=== PATIENT | male | born 1965 | race Caucasian/White ===

== ENCOUNTER 2018-07-18 15:20 | Inpatient (IN) | payer MEDICARE, MEDICAID ==
[~2018-07-18] VITALS: Ht 144.8 cm; Wt 88.9 kg
[2018-07-18] MEDS ORDERED: MORPHINE SULFATE 4 MG/ML CPJ (NOT FOR IM USE) IV STA (15:45)
[2018-07-18] MEDS ORDERED: NITROGLYCERIN OINT 1GM/INCH UDPKT TD ONE (15:45)
[2018-07-18] MEDS ORDERED: ASPIRIN 81MG TABLET PO ONE (15:45)
[2018-07-18] MEDS ORDERED: ONDANSETRON HCL 4MG/2ML INJ IV STA (15:45)
[2018-07-18] MEDS: NITROGLYCERIN 0.4MG TABLET SL SL PRN ×3 (16:36→16:55)
[2018-07-18 16:41] LABS: BASOPHILS % 0.6 % (0.0-2.0); EOSINOPHILS % 0.1 % (0.0-5.0); HEMATOCRIT. 30.6 % (42.0-52.0); LYMPHOCYTES % 9.9 % (20.0-50.0); MEAN CORPUSCULAR HEMOGLOBIN 31.2 pg (28.0-32.0); MEAN CORPUSCULAR VOLUME 95.1 fL (80.0-94.0); MEAN PLATELET VOLUME 8.2 fl (7.4-10.4); MONOCYTES % 5.4 % (2.0-8.0); PLATELET 244 x1000/uL (130-400); RED BLOOD CELL COUNT 3.22 mill/uL (4.7-6.1); RED CELL DISTRIBUTION WIDTH 18.4 % (11.6-14.6)
[2018-07-18] MEDS ORDERED: LORAZEPAM 2MG/ML CPJ IV ONE (16:45)
[2018-07-18 16:46] LABS: CHLORIDE 97 mEq/L (98-107)
[2018-07-18 16:48] LABS: INR 1.2; PARTIAL THROMBOPLASTIN TIME 24.9 sec (23.4-31.0); PROTHROMBIN TIME 11.8 sec (9.1-11.1)
[2018-07-18 16:53] LABS: ETHANOL BLOOD < 10 mg/dL
[2018-07-18 16:54] LABS: PHOSPHORUS 4.7 mg/dL (2.5-4.9)
[2018-07-18] MEDS ORDERED: CLONIDINE 0.1MG TABLET PO PRN (18:30)
[2018-07-18] MEDS ORDERED: DEXTROSE 50% WATER 50ML SYRINGE IV PRN (18:30)
[2018-07-18] MEDS ORDERED: ONDANSETRON HCL 4MG/2ML INJ IV PRN (18:30)
[2018-07-18] MEDS ORDERED: LACTULOSE 20G/30ML UDC PO PRN (19:34)
[2018-07-18 21:00] VITALS: BP 168/89
[2018-07-18] MEDS: BLOOD SUGAR DIAGNOSTIC STRIP TEST SCH (21:00)
[2018-07-18] MEDS: INSULIN LISPRO 100 UNITS/ML SUBCUT SCH (21:00)
[2018-07-18 22:06] VITALS: BP 168/89
[2018-07-18] MEDS: AMLODIPINE 5MG TABLET PO SCH (22:31)
[2018-07-18] MEDS: NITROGLYCERIN OINT 1GM/INCH UDPKT TD SCH (22:32)
[2018-07-19] VITALS (7 sets, daily range): BP systolic 132–150; BP diastolic 64–83
[2018-07-19] MEDS: NITROGLYCERIN OINT 1GM/INCH UDPKT TD SCH ×3 (05:43→23:13)
[2018-07-19] MEDS: INSULIN LISPRO 100 UNITS/ML SUBCUT SCH ×4 (05:47→20:28)
[2018-07-19] MEDS: BLOOD SUGAR DIAGNOSTIC STRIP TEST SCH ×4 (05:47→20:29)
[2018-07-19 08:37] LABS: CREATINE KINASE MB FRACTION 1.2 ng/mL (0.5-3.6)
[2018-07-19] MEDS: ASPIRIN 81MG TABLET PO SCH (08:41)
[2018-07-19] MEDS: AMLODIPINE 5MG TABLET PO SCH ×2 (08:41→20:24)
[2018-07-19] MEDS: LOSARTAN POTASSIUM 50 MG TABLET PO SCH (09:00)
[2018-07-19] MEDS: ATORVASTATIN CALCIUM 10MG TABLET PO SCH (20:23)
[2018-07-19] MEDS: MORPHINE SULFATE 4 MG/ML CPJ (NOT FOR IM USE) IV PRN (20:23)
[2018-07-19] MEDS: METOPROLOL TARTRATE 25MG TABLET PO SCH (20:24)
[2018-07-20 04:00] VITALS: BP 142/88
[2018-07-20] MEDS: BLOOD SUGAR DIAGNOSTIC STRIP TEST SCH ×4 (06:17→20:45)
[2018-07-20] MEDS: NITROGLYCERIN OINT 1GM/INCH UDPKT TD SCH ×3 (06:18→22:56)
[2018-07-20] MEDS: INSULIN LISPRO 100 UNITS/ML SUBCUT SCH ×4 (06:18→20:45)
[2018-07-20 08:10] VITALS: BP 141/74
[2018-07-20] MEDS: ASPIRIN 81MG TABLET PO SCH (08:57)
[2018-07-20] MEDS: LOSARTAN POTASSIUM 50 MG TABLET PO SCH (08:57)
[2018-07-20] MEDS: METOPROLOL TARTRATE 25MG TABLET PO SCH ×2 (08:57→20:44)
[2018-07-20] MEDS: AMLODIPINE 5MG TABLET PO SCH ×2 (08:58→20:44)
[2018-07-20] MEDS: MORPHINE SULFATE 4 MG/ML CPJ (NOT FOR IM USE) IV PRN ×2 (09:03→21:01)
[2018-07-20 09:35] LABS: BASOPHILS % 1.1 % (0.0-2.0); HEMATOCRIT. 34.9 % (42.0-52.0); HEMOGLOBIN. 11.5 g/dL (14.0-18.0); LYMPHOCYTES % 20.3 % (20.0-50.0); MEAN CORPUSCULAR VOLUME 94.2 fL (80.0-94.0); MEAN PLATELET VOLUME 7.9 fl (7.4-10.4); MONOCYTES % 7.9 % (2.0-8.0); NEUTROPHILS % 63.7 % (40.0-76.0); PLATELET 272 x1000/uL (130-400)
[2018-07-20 09:52] LABS: PHOSPHORUS 5.4 mg/dL (2.5-4.9)
[2018-07-20 12:00] VITALS: BP 137/69
[2018-07-20 16:02] VITALS: BP 151/84
[2018-07-20 20:00] VITALS: BP 146/82
[2018-07-20] MEDS: ATORVASTATIN CALCIUM 10MG TABLET PO SCH (20:44)
[2018-07-21] VITALS: BP 140/80
[2018-07-21 04:00] VITALS: BP 131/78
[2018-07-21] MEDS: NITROGLYCERIN OINT 1GM/INCH UDPKT TD SCH ×2 (06:00→14:47)
[2018-07-21] MEDS: BLOOD SUGAR DIAGNOSTIC STRIP TEST SCH ×3 (06:09→16:33)
[2018-07-21] MEDS: INSULIN LISPRO 100 UNITS/ML SUBCUT SCH ×3 (06:09→17:13)
[2018-07-21 08:18] VITALS: BP 147/84
[2018-07-21 10:02] LABS: BASOPHILS % 1.9 % (0.0-2.0); EOSINOPHILS % 8.4 % (0.0-5.0); HEMATOCRIT. 35.3 % (42.0-52.0); HEMOGLOBIN. 11.7 g/dL (14.0-18.0); LYMPHOCYTES % 19.6 % (20.0-50.0); MEAN CORPUSCULAR HEMOGLOBIN 31.1 pg (28.0-32.0); MEAN CORPUSCULAR VOLUME 93.7 fL (80.0-94.0); MEAN PLATELET VOLUME 8.7 fl (7.4-10.4); MONOCYTES % 6.4 % (2.0-8.0); NEUTROPHILS % 63.7 % (40.0-76.0); PLATELET 327 x1000/uL (130-400); RED BLOOD CELL COUNT 3.77 mill/uL (4.7-6.1); RED CELL DISTRIBUTION WIDTH 17.1 % (11.6-14.6)
[2018-07-21] MEDS: METOPROLOL TARTRATE 25MG TABLET PO SCH (10:09)
[2018-07-21] MEDS: AMLODIPINE 5MG TABLET PO SCH (10:09)
[2018-07-21] MEDS: LOSARTAN POTASSIUM 50 MG TABLET PO SCH (10:09)
[2018-07-21] MEDS: ASPIRIN 81MG TABLET PO SCH (10:09)
[2018-07-21 10:29] LABS: PHOSPHORUS 6.6 mg/dL (2.5-4.9)
[2018-07-21 12:00] VITALS: BP 147/85
[2018-07-21] MEDS ORDERED: SODIUM POLYSTYRENE SULFONATE 15 G/60 ML BOT PO SCH (16:49)
[2018-07-21] MEDS ORDERED: LOSA50TA3 PO (17:16)
[2018-07-21] MEDS ORDERED: ASPI-1160 PO (17:16)
[2018-07-21] MEDS ORDERED: METO25TA6 PO (17:16)
[2018-07-21] MEDS ORDERED: AMLO5TAB88 PO (17:16)
[2018-07-21] MEDS ORDERED: ATOR10TA PO (17:16)
[2018-07-21 17:26] VITALS: BP 134/86
== END 2018-07-21 20:00 | disposition home or self-care (01) | DRG 205 ==
LOC: ER 15:20 → 8WST 17:04 → ENRESERV 19:01
PROVIDERS: ADMIT Internal Medicine; ATTEND Internal Medicine
DX: M94.0 Chondrocostal junction syndrome [Tietze] (principal); N18.6 End stage renal disease; I50.21 Acute systolic (congestive) heart failure; J96.91 Respiratory failure, unspecified with hypoxia; I13.2 Hypertensive heart and chronic kidney disease with heart failure and with stage 5 chronic kidney disease, or end stage renal disease; N25.81 Secondary hyperparathyroidism of renal origin; E87.1 Hypo-osmolality and hyponatremia; I42.9 Cardiomyopathy, unspecified; R07.89 Other chest pain; D63.8 Anemia in other chronic diseases classified elsewhere; E11.22 Type 2 diabetes mellitus with diabetic chronic kidney disease; E11.43 Type 2 diabetes mellitus with diabetic autonomic (poly)neuropathy; E11.65 Type 2 diabetes mellitus with hyperglycemia; R26.2 Difficulty in walking, not elsewhere classified; E87.8 Other disorders of electrolyte and fluid balance, not elsewhere classified; I27.20 Pulmonary hypertension, unspecified; K31.84 Gastroparesis; Z82.49 Family history of ischemic heart disease and other diseases of the circulatory system; Z86.718 Personal history of other venous thrombosis and embolism; Z99.2 Dependence on renal dialysis
CPT/HCPCS: 36415; 71045; 80048; 80061; 82550; 82553; 82962; 83735; 84100; 84155; 84165; 84443; 84484; 93005; 93306; 93970; 96374; 96375; 99291; C1893; G0482; J1815; J2060; J2270; J2405; J7030

== ENCOUNTER 2018-08-02 10:15 | Inpatient (IN) | payer MEDICARE, MEDICAID ==
[~2018-08-02] VITALS: Ht 165.1 cm; Wt 61.7 kg
[~2018-08-02 10:15] MED LIST: AMLO5TAB88 PO; ASPI-1160 PO; ATOR10TA PO; LOSA50TA3 PO; METO25TA6 PO
[2018-08-02] MEDS ORDERED: ONDANSETRON HCL 4MG/2ML INJ IV STA (10:27)
[2018-08-02] MEDS ORDERED: MORPHINE SULFATE 4 MG/ML CPJ (NOT FOR IM USE) IV ONE (10:45)
[2018-08-02 10:49] LABS: HEMATOCRIT. 29.1 % (42.0-52.0); HEMOGLOBIN. 9.7 g/dL (14.0-18.0); MEAN CORPUSCULAR HEMOGLOBIN 31.1 pg (28.0-32.0); MEAN CORPUSCULAR VOLUME 93.6 fL (80.0-94.0); MEAN PLATELET VOLUME 8.6 fl (7.4-10.4); PLATELET 214 x1000/uL (130-400); RED BLOOD CELL COUNT 3.11 mill/uL (4.7-6.1)
[2018-08-02 11:01] LABS: CHLORIDE 95 mEq/L (98-107)
[2018-08-02 11:20] LABS: PLATELET ESTIMATE NORMAL
[2018-08-02] MEDS ORDERED: FUROSEMIDE 100MG/10ML VIAL IV STA (11:25)
[2018-08-02] MEDS ORDERED: DEXTROSE 50% WATER 50ML SYRINGE IV ONE (11:30)
[2018-08-02] MEDS ORDERED: SODIUM BICARBONATE 8.4% 1 MEQ/ML 50ML SYR IV ONE (11:30)
[2018-08-02] MEDS ORDERED: INSULIN REGULAR (HUMULIN R) 300UNITS/3ML IV ONE (11:30)
[2018-08-02] MEDS ORDERED: CALCIUM CHLORIDE 1GM/10ML SYR IV ONE (11:30)
[2018-08-02] MEDS ORDERED: ALBUTEROL (0.083%) 2.5MG/3ML NEB HHN ONE (11:30)
[2018-08-02] MEDS ORDERED: IPRATROPIUM/ALBUTEROL 0.5-3(2.5)MG/3ML NEB INH PRN (13:30)
[2018-08-02] MEDS ORDERED: CLONIDINE 0.1MG TABLET PO PRN (13:30)
[2018-08-02] MEDS ORDERED: DOCUSATE SODIUM 100MG CAPSULE PO PRN (13:30)
[2018-08-02] MEDS ORDERED: ONDANSETRON HCL 4MG/2ML INJ IV PRN (13:30)
[2018-08-02] MEDS ORDERED: ACETAMINOPHEN 325MG TABLET PO PRN (13:30)
[2018-08-02 13:45] VITALS: BP 147/55
[2018-08-02] MEDS ORDERED: DEXTROSE 50% WATER 50ML SYRINGE IV PRN (13:45)
[2018-08-02 14:43] VITALS: BP 147/55
[2018-08-02 16:00] VITALS: BP 127/58
[2018-08-02] MEDS: INSULIN LISPRO 100 UNITS/ML SUBCUT SCH ×2 (16:10→20:53)
[2018-08-02] MEDS: BLOOD SUGAR DIAGNOSTIC STRIP TEST SCH ×2 (16:10→20:52)
[2018-08-02] MEDS: HYDROCODONE/ACETAMINOPHEN 5/325MG TABLET PO PRN (16:29)
[2018-08-02 18:21] LABS: CREATINE KINASE MB FRACTION 1.5 ng/mL (0.5-3.6); PHOSPHORUS 3.8 mg/dL (2.5-4.9)
[2018-08-02] MEDS ORDERED: NITROGLYCERIN 0.4MG TABLET SL SL PRN (18:45)
[2018-08-02] MEDS ORDERED: MORPHINE SULFATE 4 MG/ML CPJ (NOT FOR IM USE) IV PRN (18:45)
[2018-08-02 20:00] VITALS: BP 144/56
[2018-08-03] VITALS: BP 134/55
[2018-08-03 04:00] VITALS: BP 131/56
[2018-08-03] MEDS: BLOOD SUGAR DIAGNOSTIC STRIP TEST SCH ×4 (06:20→21:00)
[2018-08-03] MEDS: PANTOPRAZOLE 40MG DR TABLET PO SCH (06:20)
[2018-08-03 06:23] LABS: EOSINOPHILS % 2.2 % (0.0-5.0); HEMATOCRIT. 24.9 % (42.0-52.0); HEMOGLOBIN. 8.4 g/dL (14.0-18.0); LYMPHOCYTES % 16.8 % (20.0-50.0); MEAN CORPUSCULAR HEMOGLOBIN 31.1 pg (28.0-32.0); MEAN CORPUSCULAR VOLUME 92.6 fL (80.0-94.0); MEAN PLATELET VOLUME 8.9 fl (7.4-10.4); MONOCYTES % 9.8 % (2.0-8.0); NEUTROPHILS % 70.2 % (40.0-76.0); PLATELET 183 x1000/uL (130-400); RED BLOOD CELL COUNT 2.69 mill/uL (4.7-6.1); RED CELL DISTRIBUTION WIDTH 16.8 % (11.6-14.6)
[2018-08-03 06:56] LABS: CREATINE KINASE MB FRACTION 1.2 ng/mL (0.5-3.6)
[2018-08-03] MEDS: INSULIN LISPRO 100 UNITS/ML SUBCUT SCH ×4 (07:42→21:00)
[2018-08-03 08:00] VITALS: BP 129/50
[2018-08-03] MEDS: HYDROCODONE/ACETAMINOPHEN 5/325MG TABLET PO PRN ×2 (09:27→13:40)
[2018-08-03 12:00] VITALS: BP 152/71
[2018-08-03] MEDS: ASPIRIN 81MG EC TABLET PO SCH (13:39)
[2018-08-03 16:00] VITALS: BP 168/58
[2018-08-03 20:00] VITALS: BP 153/56
[2018-08-03] MEDS: METOPROLOL TARTRATE 25MG TABLET PO SCH (21:00)
[2018-08-03] MEDS: ATORVASTATIN CALCIUM 10MG TABLET PO SCH (22:08)
[2018-08-04] VITALS: BP 149/53
[2018-08-04] MEDS: PANTOPRAZOLE 40MG DR TABLET PO SCH (06:03)
[2018-08-04] MEDS: BLOOD SUGAR DIAGNOSTIC STRIP TEST SCH ×4 (07:20→20:17)
[2018-08-04] MEDS: INSULIN LISPRO 100 UNITS/ML SUBCUT SCH ×4 (07:50→20:17)
[2018-08-04 08:00] VITALS: BP 125/68
[2018-08-04] MEDS: METOPROLOL TARTRATE 25MG TABLET PO SCH ×2 (09:00→20:16)
[2018-08-04] MEDS: ASPIRIN 81MG EC TABLET PO SCH (09:00)
[2018-08-04] MEDS ORDERED: REGADENOSON 0.4 MG/5 ML IV NR (10:15)
[2018-08-04 12:00] VITALS: BP 130/53
[2018-08-04 16:00] VITALS: BP 149/61
[2018-08-04 16:12] LABS: BASOPHILS % 1.4 % (0.0-2.0); EOSINOPHILS % 9.8 % (0.0-5.0); HEMATOCRIT. 25.6 % (42.0-52.0); HEMOGLOBIN. 8.5 g/dL (14.0-18.0); LYMPHOCYTES % 15.2 % (20.0-50.0); MEAN CORPUSCULAR HEMOGLOBIN 31.3 pg (28.0-32.0); MEAN CORPUSCULAR VOLUME 93.8 fL (80.0-94.0); MEAN PLATELET VOLUME 8.9 fl (7.4-10.4); MONOCYTES % 6.8 % (2.0-8.0); NEUTROPHILS % 66.8 % (40.0-76.0); PLATELET 205 x1000/uL (130-400); RED BLOOD CELL COUNT 2.73 mill/uL (4.7-6.1); RED CELL DISTRIBUTION WIDTH 15.9 % (11.6-14.6)
[2018-08-04 20:09] VITALS: BP 165/83
[2018-08-04] MEDS: ATORVASTATIN CALCIUM 10MG TABLET PO SCH (20:16)
[2018-08-05] MEDS ORDERED: FAMOTIDINE 20MG TABLET PO SCH (09:00)
== END 2018-08-04 20:50 | disposition home or self-care (01) | DRG 291 ==
LOC: ER 10:15 → 6WST 11:44 → EDBEDREQ 11:46 → ENRESERV 12:03
PROVIDERS: ADMIT Internal Medicine; ATTEND Internal Medicine
PROC: 5A1D70Z Performance of Urinary Filtration, Intermittent, Less than 6 Hours Per Day (ICD-10-PCS; 2018-08-02)
PROC: 5A1D70Z Performance of Urinary Filtration, Intermittent, Less than 6 Hours Per Day (ICD-10-PCS; principal; 2018-08-03)
DX: I13.2 Hypertensive heart and chronic kidney disease with heart failure and with stage 5 chronic kidney disease, or end stage renal disease (principal); N18.6 End stage renal disease; I50.23 Acute on chronic systolic (congestive) heart failure; E87.2 Acidosis; E87.1 Hypo-osmolality and hyponatremia; E87.5 Hyperkalemia; E11.43 Type 2 diabetes mellitus with diabetic autonomic (poly)neuropathy; K31.84 Gastroparesis; I42.9 Cardiomyopathy, unspecified; D63.1 Anemia in chronic kidney disease; E11.40 Type 2 diabetes mellitus with diabetic neuropathy, unspecified; E11.21 Type 2 diabetes mellitus with diabetic nephropathy; I27.20 Pulmonary hypertension, unspecified; E11.22 Type 2 diabetes mellitus with diabetic chronic kidney disease; Z91.15 Patient's noncompliance with renal dialysis; Z91.19 Patient's noncompliance with other medical treatment and regimen; Z79.82 Long term (current) use of aspirin; Z99.2 Dependence on renal dialysis; Z79.899 Other long term (current) drug therapy
CPT/HCPCS: 36415; 71045; 80048; 80061; 82550; 82553; 82962; 83735; 83880; 84100; 84443; 84484; 93005; 93970; 94640; 96374; 96375; 99285; C1893; J1815; J1940; J2270; J2405; J3490; J7030; J7611

== ENCOUNTER 2018-08-15 23:47 | Inpatient (IN) | payer MEDICARE, MEDICAID ==
[~2018-08-15] VITALS: Ht 160 cm; Wt 61.0 kg
[~2018-08-15 23:47] MED LIST changes: -LOSA50TA3 PO
[2018-08-16] MEDS ORDERED: METOCLOPRAMIDE HCL 10MG/2ML VIAL IV STA (00:23)
[2018-08-16] MEDS ORDERED: MORPHINE SULFATE 4 MG/ML CPJ (NOT FOR IM USE) IV ONE (02:15)
[2018-08-16 02:56] LABS: CHLORIDE 101 mEq/L (98-107)
[2018-08-16 03:03] LABS: ETHANOL BLOOD < 10 mg/dL
[2018-08-16 03:16] LABS: BASOPHILS % 0.6 % (0.0-2.0); EOSINOPHILS % 1.4 % (0.0-5.0); HEMATOCRIT. 24.1 % (42.0-52.0); HEMOGLOBIN. 8.1 g/dL (14.0-18.0); LYMPHOCYTES % 9.2 % (20.0-50.0); MEAN CORPUSCULAR HEMOGLOBIN 31.5 pg (28.0-32.0); MEAN CORPUSCULAR VOLUME 93.9 fL (80.0-94.0); MEAN PLATELET VOLUME 8.8 fl (7.4-10.4); NEUTROPHILS % 84.8 % (40.0-76.0); PLATELET 218 x1000/uL (130-400); RED BLOOD CELL COUNT 2.57 mill/uL (4.7-6.1); RED CELL DISTRIBUTION WIDTH 16.3 % (11.6-14.6)
[2018-08-16] MEDS ORDERED: DEXTROSE 50% WATER 50ML SYRINGE IV ONE ×2 (05:00→05:45)
[2018-08-16] MEDS ORDERED: SODIUM POLYSTYRENE SULFONATE 15 G/60 ML BOT PO ONE (05:00)
[2018-08-16] MEDS ORDERED: ASPIRIN 81MG TABLET PO ONE (05:00)
[2018-08-16] MEDS ORDERED: INSULIN REGULAR (HUMULIN R) 300UNITS/3ML IV ONE (05:00)
[2018-08-16 08:55] VITALS: BP 156/84
[2018-08-16 09:00] VITALS: BP 156/84
[2018-08-16] MEDS ORDERED: ONDANSETRON HCL 4MG/2ML INJ IV PRN (09:30)
[2018-08-16] MEDS ORDERED: CLONIDINE 0.1MG TABLET PO PRN (09:30)
[2018-08-16] MEDS: LOSARTAN POTASSIUM 100 MG TABLET PO SCH (09:30)
[2018-08-16] MEDS: MORPHINE SULFATE 4 MG/ML CPJ (NOT FOR IM USE) IV PRN ×2 (11:32→21:37)
[2018-08-16 11:42] VITALS: BP 156/84
[2018-08-16 12:00] VITALS: BP_SYST 162; BP_SYST 164; BP_DIAS 86
[2018-08-16] MEDS ORDERED: METOCLOPRAMIDE HCL 10MG/2ML VIAL IV SCH (12:00)
[2018-08-16] MEDS: HYDRALAZINE HCL 100MG TABLET PO SCH ×2 (14:00→22:17)
[2018-08-16] MEDS: NIFEDIPINE XL 60MG TAB PO SCH (14:15)
[2018-08-16 16:00] VITALS: BP 161/96
[2018-08-16] MEDS: METOCLOPRAMIDE HCL 10MG/2ML VIAL IV SCH (18:00)
[2018-08-16] MEDS: EPOETIN ALFA 10000UNITS/ML VIAL SUBCUT SCH ×2 (21:00→22:17)
[2018-08-16] MEDS ORDERED: EPOETIN ALFA 10000UNITS/ML VIAL SUBCUT SCH (21:00)
[2018-08-16 22:31] LABS: CREATINE KINASE MB FRACTION 1.7 ng/mL (0.5-3.6)
[2018-08-17] VITALS: BP 149/80
[2018-08-17] MEDS: METOCLOPRAMIDE HCL 10MG/2ML VIAL IV SCH ×4 (01:38→18:21)
[2018-08-17 04:00] VITALS: BP 137/66
[2018-08-17] MEDS: HYDRALAZINE HCL 100MG TABLET PO SCH ×2 (06:00→14:00)
[2018-08-17 08:00] VITALS: BP 100/47
[2018-08-17] MEDS: NIFEDIPINE XL 60MG TAB PO SCH (09:02)
[2018-08-17] MEDS: LOSARTAN POTASSIUM 100 MG TABLET PO SCH (09:02)
[2018-08-17] MEDS: MORPHINE SULFATE 4 MG/ML CPJ (NOT FOR IM USE) IV PRN (09:03)
[2018-08-17 10:17] LABS: BASOPHILS % 1.4 % (0.0-2.0); EOSINOPHILS % 6.6 % (0.0-5.0); HEMATOCRIT. 26.6 % (42.0-52.0); HEMOGLOBIN. 9.1 g/dL (14.0-18.0); LYMPHOCYTES % 25.9 % (20.0-50.0); MEAN CORPUSCULAR HEMOGLOBIN 31.4 pg (28.0-32.0); MEAN CORPUSCULAR VOLUME 92.2 fL (80.0-94.0); MEAN PLATELET VOLUME 8.2 fl (7.4-10.4); MONOCYTES % 7.2 % (2.0-8.0); NEUTROPHILS % 58.9 % (40.0-76.0); PLATELET 234 x1000/uL (130-400); RED BLOOD CELL COUNT 2.89 mill/uL (4.7-6.1)
[2018-08-17 12:00] VITALS: BP 100/47
[2018-08-17 16:00] VITALS: BP 100/49
[2018-08-17 20:00] VITALS: BP 97/52
[2018-08-17] MEDS: HYDRALAZINE HCL 50MG TABLET PO SCH (22:00)
[2018-08-18] VITALS: BP 102/56
[2018-08-18 04:00] VITALS: BP 103/48
[2018-08-18] MEDS: HYDRALAZINE HCL 50MG TABLET PO SCH (05:55)
[2018-08-18] MEDS: METOCLOPRAMIDE HCL 10MG/2ML VIAL IV SCH ×2 (05:55)
[2018-08-18 08:00] VITALS: BP 110/57
[2018-08-18] MEDS: LOSARTAN POTASSIUM 100 MG TABLET PO SCH (09:07)
[2018-08-18] MEDS: NIFEDIPINE XL 60MG TAB PO SCH (09:07)
[2018-08-18 12:00] VITALS: BP 147/73
[2018-08-18 13:24] LABS: BASOPHILS % 0.9 % (0.0-2.0); EOSINOPHILS % 4.3 % (0.0-5.0); HEMATOCRIT. 23.5 % (42.0-52.0); LYMPHOCYTES % 18.6 % (20.0-50.0); MEAN CORPUSCULAR HEMOGLOBIN 31.1 pg (28.0-32.0); MONOCYTES % 7.4 % (2.0-8.0); NEUTROPHILS % 68.8 % (40.0-76.0); PLATELET 218 x1000/uL (130-400); RED BLOOD CELL COUNT 2.58 mill/uL (4.7-6.1); RED CELL DISTRIBUTION WIDTH 15.7 % (11.6-14.6)
[2018-08-18 14:10] VITALS: BP 147/73
[2018-08-18 15:40] VITALS: BP 141/82
[2018-08-19] MEDS ORDERED: LOSARTAN POTASSIUM 50 MG TABLET PO SCH (09:00)
== END 2018-08-18 14:49 | disposition home or self-care (01) | DRG 73 ==
LOC: ER 23:47 → 7WST 08-16 04:57 → EDBEDREQ 08-16 05:09 → EDBEDREQTM 08-16 05:09 → ENRESERV 08-16 07:03 → 7WST 08-16 09:21
PROVIDERS: ADMIT Internal Medicine; ATTEND Internal Medicine
PROC: 5A1D70Z Performance of Urinary Filtration, Intermittent, Less than 6 Hours Per Day (ICD-10-PCS; 2018-08-16)
PROC: 5A1D70Z Performance of Urinary Filtration, Intermittent, Less than 6 Hours Per Day (ICD-10-PCS; principal; 2018-08-17)
DX: E11.43 Type 2 diabetes mellitus with diabetic autonomic (poly)neuropathy (principal); N18.6 End stage renal disease; I50.23 Acute on chronic systolic (congestive) heart failure; J90 Pleural effusion, not elsewhere classified; N25.81 Secondary hyperparathyroidism of renal origin; I13.2 Hypertensive heart and chronic kidney disease with heart failure and with stage 5 chronic kidney disease, or end stage renal disease; E11.65 Type 2 diabetes mellitus with hyperglycemia; I07.1 Rheumatic tricuspid insufficiency; D63.8 Anemia in other chronic diseases classified elsewhere; K31.84 Gastroparesis; E11.22 Type 2 diabetes mellitus with diabetic chronic kidney disease; E87.5 Hyperkalemia; I27.20 Pulmonary hypertension, unspecified; K57.90 Diverticulosis of intestine, part unspecified, without perforation or abscess without bleeding; Z99.2 Dependence on renal dialysis; Z79.899 Other long term (current) drug therapy
CPT/HCPCS: 36415; 71045; 74176; 80048; 82550; 82553; 82962; 83605; 84145; 84484; 93005; 96374; 96375; 99291; C1893; G0482; J0885; J1815; J2270; J2765; J7030

== ENCOUNTER 2018-09-04 22:03 | Emergency (ER) | payer MEDICAID, MEDICARE ==
[~2018-09-04] VITALS: Ht 152.4 cm; Wt 59.0 kg
[~2018-09-04 22:03] MED LIST changes: -ASPI-1160 PO
[2018-09-05] MEDS ORDERED: MORPHINE SULFATE 4 MG/ML CPJ (NOT FOR IM USE) IV STA (00:20)
[2018-09-05] MEDS ORDERED: SODIUM CHLORIDE 0.9% 1,000 ML IV ONE (00:20)
[2018-09-05] MEDS ORDERED: METOCLOPRAMIDE HCL 10MG/2ML VIAL IV ONE (00:30)
[2018-09-05 01:48] LABS: CHLORIDE 100 mEq/L (98-107)
[2018-09-05 03:31] LABS: HEMOGLOBIN. 8.8 g/dL (14.0-18.0); MEAN CORPUSCULAR HEMOGLOBIN 30.8 pg (28.0-32.0); MEAN CORPUSCULAR VOLUME 90.9 fL (80.0-94.0); MEAN PLATELET VOLUME 8.1 fl (7.4-10.4); PLATELET 232 x1000/uL (130-400); RED BLOOD CELL COUNT 2.86 mill/uL (4.7-6.1); RED CELL DISTRIBUTION WIDTH 15.6 % (11.6-14.6)
[2018-09-05 03:37] LABS: INR 1.1; PROTHROMBIN TIME 11.5 sec (9.1-11.1)
[2018-09-05] MEDS ORDERED: LORAZEPAM 2MG/ML CPJ IV ONE (04:15)
[2018-09-05] MEDS ORDERED: ONDANSETRON HCL 4MG/2ML INJ IV ONE (04:15)
[2018-09-05 04:41] LABS: PLATELET ESTIMATE NORMAL
[2018-09-05 08:25] VITALS: BP 173/94
== END 2018-09-05 08:30 | disposition home or self-care (01) ==
LOC: ER 22:03
DX: K31.84 Gastroparesis (principal); R11.10 Vomiting, unspecified; N19 Unspecified kidney failure; Z99.2 Dependence on renal dialysis; I10 Essential (primary) hypertension
CPT/HCPCS: 36415; 80053; 85025; 85610; 93005; 96361; 96374; 96375; 99284; J2060; J2270; J2405; J2765; J7030

== ENCOUNTER 2018-12-02 10:58 | Inpatient (IN) | payer MEDICARE ==
[~2018-12-02] VITALS: Ht 175.3 cm; Wt 54.0 kg
[2018-12-02] MEDS ORDERED: MORPHINE SULFATE 4 MG/ML CPJ (NOT FOR IM USE) IV STA (11:28)
[2018-12-02] MEDS ORDERED: FAMOTIDINE 20MG/2ML VIAL IV STA (11:28)
[2018-12-02] MEDS ORDERED: ONDANSETRON HCL 4MG/2ML INJ IV STA (11:28)
[2018-12-02 11:42] LABS: HEMATOCRIT. 27.2 % (42.0-52.0); HEMOGLOBIN. 9.2 g/dL (14.0-18.0); MEAN CORPUSCULAR HEMOGLOBIN 32.4 pg (28.0-32.0); MEAN CORPUSCULAR VOLUME 95.9 fL (80.0-94.0); MEAN PLATELET VOLUME 7.2 fl (7.4-10.4); PLATELET 686 x1000/uL (130-400); RED BLOOD CELL COUNT 2.83 mill/uL (4.7-6.1); RED CELL DISTRIBUTION WIDTH 15.9 % (11.6-14.6)
[2018-12-02 11:49] LABS: CHLORIDE 98 mEq/L (98-107)
[2018-12-02 11:55] LABS: ETHANOL BLOOD < 10 mg/dL
[2018-12-02 12:03] LABS: PLATELET ESTIMATE INCREASED
[2018-12-02] MEDS ORDERED: LIDOCAINE HCL 1% 20ML VIAL (Pyxis) INJ ONE (13:22)
[2018-12-02] MEDS ORDERED: HYDRALAZINE 20MG/ML VIAL IV ONE (13:30)
[2018-12-02] MEDS ORDERED: SODIUM POLYSTYRENE SULFONATE 15 G/60 ML BOT PO ONE (13:30)
[2018-12-02] MEDS ORDERED: DOCUSATE SODIUM 100MG CAPSULE PO PRN (17:30)
[2018-12-02] MEDS ORDERED: MAGNESIUM/ALUMINUM HYDROXIDE/SIMETHICONE 30ML UDC PO PRN (17:30)
[2018-12-02] MEDS ORDERED: ACETAMINOPHEN 650MG SUPP PR PRN (17:30)
[2018-12-02] MEDS ORDERED: ACETAMINOPHEN 325MG TABLET PO PRN (17:30)
[2018-12-02] MEDS ORDERED: GUAIFENESIN 200MG/10ML SUGAR FREE UDC PO PRN (17:30)
[2018-12-02] MEDS ORDERED: MORPHINE SULFATE 4 MG/ML CPJ (NOT FOR IM USE) IV PRN (19:27)
[2018-12-02 20:00] VITALS: BP 136/64
[2018-12-02] MEDS: MORPHINE SULFATE 4 MG/ML CPJ (NOT FOR IM USE) IV PRN (20:02)
[2018-12-02] MEDS: ONDANSETRON HCL 4MG/2ML INJ IV PRN (20:04)
[2018-12-02] MEDS ORDERED: NA PHOS,M-B/NA PHOS,DI-BA ENEMA 118ML PR PRN (21:00)
[2018-12-03] VITALS: BP 171/53
[2018-12-03] MEDS: MORPHINE SULFATE 4 MG/ML CPJ (NOT FOR IM USE) IV PRN ×2 (00:07→06:29)
[2018-12-03 01:40] LABS: CREATINE KINASE MB FRACTION 1.2 ng/mL (0.5-3.6)
[2018-12-03 04:00] VITALS: BP 147/51
[2018-12-03] MEDS: ONDANSETRON HCL 4MG/2ML INJ IV PRN (06:30)
[2018-12-03 08:00] VITALS: BP 170/88
[2018-12-03 10:19] LABS: HEMATOCRIT. 28.2 % (42.0-52.0); HEMOGLOBIN. 9.4 g/dL (14.0-18.0); MEAN CORPUSCULAR VOLUME 96.1 fL (80.0-94.0); MEAN PLATELET VOLUME 7.4 fl (7.4-10.4); PLATELET 680 x1000/uL (130-400); RED BLOOD CELL COUNT 2.93 mill/uL (4.7-6.1); RED CELL DISTRIBUTION WIDTH 16.3 % (11.6-14.6)
[2018-12-03 10:49] LABS: CHLORIDE 100 mEq/L (98-107)
[2018-12-03 10:59] LABS: CREATINE KINASE 60 IU/L (39-308)
[2018-12-03] MEDS ORDERED: LORAZEPAM 2MG/ML CPJ IV SCH (11:30)
[2018-12-03 11:59] LABS: PLATELET ESTIMATE INCREASED
[2018-12-03 12:00] VITALS: BP 159/96
[2018-12-03] MEDS ORDERED: SODIUM CHLORIDE 10% FOR INH 15ML VIAL NEB INH SCH (12:00)
[2018-12-03] MEDS: PANTOPRAZOLE 40MG DR TABLET PO SCH ×2 (12:38→21:55)
[2018-12-03] MEDS: PIPERACILLIN/TAZ 2.25G PREMIX 50 ML IV SCH ×2 (14:24→21:56)
[2018-12-03 16:00] VITALS: BP 161/91
[2018-12-03] MEDS: IPRATROPIUM/ALBUTEROL 0.5-3(2.5)MG/3ML NEB INH PRN (16:26)
[2018-12-03 17:05] LABS: BG BASE EXCESS 2.9 mmol/L (-2.0-2.0); BG CARBOXYHEMOGLOBIN 3.8 % (0.5-1.5); BG DEOXYHEMOGLOBIN 7.2 % (0.0-5.0); BG METHEMOGLOBIN 0.1 % (0.0-1.5); BG OXYGEN SATURATION 92.5 % (92.0-98.5); BG OXYHEMOGLOBIN 88.9 % (94.0-97.0); BG PCO2 33.7 mmHg (35.0-45.0); BG PH 7.505 (7.350-7.450); BG PO2 66.5 mmHg (75.0-100.0); BG SAMPLE SITE RIGHT BRACHIAL; BG TOTAL HEMOGLOBIN 9.2 g/dL (12.0-18.0); BG VENT MODE ROOM AIR
[2018-12-03 19:39] LABS: INR 1.2; PARTIAL THROMBOPLASTIN TIME 25.4 sec (23.4-31.0); PROTHROMBIN TIME 11.6 sec (9.1-11.1)
[2018-12-03 19:48] LABS: CREATINE KINASE 40 IU/L (39-308)
[2018-12-03 19:49] LABS: CREATINE KINASE MB FRACTION < 1.0 ng/mL (0.5-3.6)
[2018-12-03 20:00] VITALS: BP 129/60
[2018-12-04 00:02] VITALS: BP 118/66
[2018-12-04] MEDS: IPRATROPIUM/ALBUTEROL 0.5-3(2.5)MG/3ML NEB INH PRN (00:57)
[2018-12-04 04:00] VITALS: BP 147/80
[2018-12-04] MEDS: PIPERACILLIN/TAZ 2.25G PREMIX 50 ML IV SCH ×3 (06:14→22:00)
[2018-12-04] MEDS: PANTOPRAZOLE 40MG DR TABLET PO SCH (06:14)
[2018-12-04 08:00] VITALS: BP 200/95
[2018-12-04] MEDS: MORPHINE SULFATE 4 MG/ML CPJ (NOT FOR IM USE) IV PRN ×2 (08:30→17:56)
[2018-12-04] MEDS: IPRATROPIUM/ALBUTEROL 0.5-3(2.5)MG/3ML NEB HHN SCH ×4 (08:46→21:44)
[2018-12-04] MEDS ORDERED: VANCOMYCIN 1500MG in DEXTROSE 5% WATER 250ML IV NR (09:00)
[2018-12-04] MEDS ORDERED: SODIUM BICARBONATE 4% (2.4MEQ) 5ML VIAL IV ONE (09:03)
[2018-12-04] MEDS ORDERED: CLONIDINE 0.1MG TABLET PO PRN (10:00)
[2018-12-04 16:00] VITALS: BP 150/50
[2018-12-04 20:00] VITALS: BP 144/67
[2018-12-05] VITALS: BP 134/59
[2018-12-05] MEDS: IPRATROPIUM/ALBUTEROL 0.5-3(2.5)MG/3ML NEB HHN SCH ×2 (01:31→20:32)
[2018-12-05 04:00] VITALS: BP 154/56
[2018-12-05] MEDS: PIPERACILLIN/TAZ 2.25G PREMIX 50 ML IV SCH (05:30)
[2018-12-05 07:28] LABS: HEMATOCRIT. 23.7 % (42.0-52.0); HEMOGLOBIN. 7.7 g/dL (14.0-18.0); MEAN CORPUSCULAR HEMOGLOBIN 31.1 pg (28.0-32.0); MEAN CORPUSCULAR VOLUME 95.7 fL (80.0-94.0); MEAN PLATELET VOLUME 7.4 fl (7.4-10.4); PLATELET 607 x1000/uL (130-400); RED BLOOD CELL COUNT 2.48 mill/uL (4.7-6.1); RED CELL DISTRIBUTION WIDTH 16.8 % (11.6-14.6)
[2018-12-05 08:00] VITALS: BP 151/85
[2018-12-05] MEDS: FAMOTIDINE 20MG TABLET PO SCH (09:00)
[2018-12-05 10:08] LABS: PLATELET ESTIMATE INCREASED
[2018-12-05 12:00] VITALS: BP 154/53
[2018-12-05] MEDS ORDERED: VANCOMYCIN 1 G PREMIX 200 ML IV SCH (12:00)
[2018-12-05] MEDS ORDERED: BUPIVACAINE/EPINEPH/PF 0.25%/0.0005 10ML ONE (12:41)
[2018-12-05] MEDS ORDERED: BACITRACIN 50,000 UNITS/VIAL ONE (12:41)
[2018-12-05] MEDS ORDERED: TALC 3 GM VIAL IX ONE (13:06)
[2018-12-05] MEDS: HYDROCODONE/ACETAMINOPHEN 5/325MG TABLET PO PRN (13:29)
[2018-12-05 14:50] LABS: EOSINOPHILS % 0.9 % (0.0-5.0); HEMATOCRIT. 22.2 % (42.0-52.0); HEMOGLOBIN. 7.5 g/dL (14.0-18.0); LYMPHOCYTES % 7.8 % (20.0-50.0); MEAN CORPUSCULAR HEMOGLOBIN 32.3 pg (28.0-32.0); MEAN CORPUSCULAR VOLUME 95.8 fL (80.0-94.0); MEAN PLATELET VOLUME 7.1 fl (7.4-10.4); MONOCYTES % 9.6 % (2.0-8.0); NEUTROPHILS % 80.7 % (40.0-76.0); PLATELET 544 x1000/uL (130-400); RED BLOOD CELL COUNT 2.32 mill/uL (4.7-6.1); RED CELL DISTRIBUTION WIDTH 16.4 % (11.6-14.6)
[2018-12-05] MEDS ORDERED: TETRACAINE/BENZOCAINE/BUTAMBEN 20 GM SPRAY MM ONE (15:49)
[2018-12-05 16:00] VITALS: BP 147/44
[2018-12-05] MEDS: EPOETIN ALFA 10000UNITS/ML VIAL SUBCUT SCH (21:00)
[2018-12-05] MEDS ORDERED: FENTANYL CITRATE/PF 50MCG/ML 2ML VIAL ONE (21:44)
[2018-12-05] MEDS ORDERED: GLYCOPYRROLATE 0.2 MG/ML 2ML VIAL ONE (21:45)
[2018-12-05] MEDS ORDERED: PROPOFOL 200MG/20ML VIAL IV ONE (21:45)
[2018-12-05] MEDS ORDERED: ROCURONIUM BROMIDE 10MG/ML VIAL 5ML IV ONE ×2 (21:45→22:16)
[2018-12-05] MEDS ORDERED: CEFAZOLIN SODIUM 1000MG/VIAL ONE (21:45)
[2018-12-05] MEDS ORDERED: SODIUM CHLORIDE 0.9% 10ML VIAL ONE (21:45)
[2018-12-05] MEDS ORDERED: MIDAZOLAM HCL 2 MG/2 ML VIAL ONE (21:45)
[2018-12-05] MEDS ORDERED: LIDOCAINE HCL/PF 1% 10 MG/ML 5ML VIAL ONE (21:45)
[2018-12-05] MEDS ORDERED: NEOSTIGMINE METHYLSULFATE 1MG/ML 10 ML VIAL ONE (21:45)
[2018-12-05] MEDS ORDERED: PHENYLEPHRINE HCL 10 MG/ML 1ML (IV VIAL) IV ONE (21:47)
[2018-12-05] MEDS ORDERED: EPHEDRINE SULFATE 50MG/ML VIAL ONE (21:47)
[2018-12-05] MEDS ORDERED: SUCCINYLCHOLINE CHLORIDE 200MG/10ML IV ONE (21:47)
[2018-12-05] MEDS ORDERED: ONDANSETRON HCL 4MG/2ML INJ ONE (21:47)
[2018-12-05] MEDS ORDERED: METOCLOPRAMIDE HCL 10MG/2ML VIAL ONE (21:47)
[2018-12-05] MEDS ORDERED: SODIUM CHLORIDE 0.9% 1,000 ML IV NR (23:17)
[2018-12-05] MEDS ORDERED: MORPHINE SULFATE 2 MG/ML CPJ (NOT FOR IM USE) IV PRN (23:30)
[2018-12-05] MEDS ORDERED: ONDANSETRON HCL 4MG/2ML INJ IV PRN (23:30)
[2018-12-06] VITALS (52 sets, daily range): BP systolic 0–229; BP diastolic 0–190
[2018-12-06 00:02] LABS: HEMATOCRIT. 33.1 % (42.0-52.0); HEMOGLOBIN. 10.6 g/dL (14.0-18.0); MEAN CORPUSCULAR HEMOGLOBIN 30.8 pg (28.0-32.0); MEAN CORPUSCULAR VOLUME 96.4 fL (80.0-94.0); MEAN PLATELET VOLUME 7.2 fl (7.4-10.4); PLATELET 537 x1000/uL (130-400); RED BLOOD CELL COUNT 3.44 mill/uL (4.7-6.1); RED CELL DISTRIBUTION WIDTH 17.1 % (11.6-14.6)
[2018-12-06 01:31] LABS: PLATELET ESTIMATE INCREASED
[2018-12-06 01:50] LABS: BG BASE EXCESS -5.7 mmol/L (-2.0-2.0); BG CARBOXYHEMOGLOBIN 2.1 % (0.5-1.5); BG DEOXYHEMOGLOBIN 0.2 % (0.0-5.0); BG FRACTION INSPIRED OXYGEN 80; BG HCO3 ACT 19.1 mmol/L (22.0-26.0); BG METHEMOGLOBIN 0.3 % (0.0-1.5); BG OXYGEN SATURATION 99.8 % (92.0-98.5); BG OXYHEMOGLOBIN 97.4 % (94.0-97.0); BG PH 7.354 (7.350-7.450); BG PO2 329.1 mmHg (75.0-100.0); BG SAMPLE SITE A-LINE; BG TIDAL VOLUME(mL) 500 mL; BG TOTAL HEMOGLOBIN 11.8 g/dL (12.0-18.0); BG VENT MODE VENT - A/C; BG VENT RATE 10 set
[2018-12-06] MEDS: MORPHINE SULFATE 4 MG/ML CPJ (NOT FOR IM USE) IV PRN ×2 (02:30→05:17)
[2018-12-06] MEDS: DIPHENHYDRAMINE 50MG/ML VIAL IV PRN (03:02)
[2018-12-06] MEDS: HYDROMORPHONE HCL/PF 2MG/ML CPJ IV PRN ×2 (05:31→05:39)
[2018-12-06] MEDS: PROPOFOL 10MG/ML 100ML 100 ML IV PRN ×3 (06:04→21:47)
[2018-12-06] MEDS: IPRATROPIUM/ALBUTEROL 0.5-3(2.5)MG/3ML NEB HHN SCH ×3 (07:30→20:16)
[2018-12-06 09:09] LABS: HIV SCREEN 4G Non Reactive (Non Reactive)
[2018-12-06 10:24] LABS: HEMATOCRIT. 31.2 % (42.0-52.0); HEMOGLOBIN. 10.3 g/dL (14.0-18.0); MEAN CORPUSCULAR HEMOGLOBIN 29.9 pg (28.0-32.0); MEAN CORPUSCULAR VOLUME 90.4 fL (80.0-94.0); MEAN PLATELET VOLUME 7.3 fl (7.4-10.4); PLATELET 514 x1000/uL (130-400); RED BLOOD CELL COUNT 3.45 mill/uL (4.7-6.1); RED CELL DISTRIBUTION WIDTH 19.2 % (11.6-14.6)
[2018-12-06 10:49] LABS: PLATELET ESTIMATE INCREASED
[2018-12-06] MEDS ORDERED: HEPARIN SODIUM 1,000 UNIT/1ML VIAL IV NR (13:00)
[2018-12-06] MEDS: FAMOTIDINE 20MG TABLET PO SCH (13:02)
[2018-12-06 14:19] LABS: BG BASE EXCESS -2.6 mmol/L (-2.0-2.0); BG CARBOXYHEMOGLOBIN 2.6 % (0.5-1.5); BG DEOXYHEMOGLOBIN 0.2 % (0.0-5.0); BG FRACTION INSPIRED OXYGEN 80; BG HCO3 ACT 20.9 mmol/L (22.0-26.0); BG METHEMOGLOBIN 0.3 % (0.0-1.5); BG OXYGEN SATURATION 99.8 % (92.0-98.5); BG OXYHEMOGLOBIN 96.9 % (94.0-97.0); BG PH 7.432 (7.350-7.450); BG SAMPLE SITE A-LINE; BG TIDAL VOLUME(mL) 500 mL; BG VENT MODE VENT - A/C; BG VENT RATE 10 set
[2018-12-06] MEDS: PIPERACILLIN/TAZ 2.25G PREMIX 50 ML IV SCH ×2 (14:47→21:26)
[2018-12-06] MEDS: HYDRALAZINE 20MG/ML VIAL IV PRN (15:18)
[2018-12-06] MEDS: NITROGLYCERIN OINT 1GM/INCH UDPKT TD SCH ×2 (16:27→21:26)
[2018-12-06] MEDS ORDERED: AMLODIPINE 10MG TABLET PO ONE (17:30)
[2018-12-06] MEDS: ENALAPRIL 1.25MG/ML VIAL 1ML IV SCH (17:46)
[2018-12-07] VITALS (60 sets, daily range): BP systolic 78–166; BP diastolic 38–111
[2018-12-07] MEDS: IPRATROPIUM/ALBUTEROL 0.5-3(2.5)MG/3ML NEB HHN SCH ×4 (02:02→20:22)
[2018-12-07] MEDS: MORPHINE SULFATE 4 MG/ML CPJ (NOT FOR IM USE) IV PRN (04:57)
[2018-12-07] MEDS: PIPERACILLIN/TAZ 2.25G PREMIX 50 ML IV SCH ×3 (05:11→22:23)
[2018-12-07] MEDS: ENALAPRIL 1.25MG/ML VIAL 1ML IV SCH ×4 (05:12→18:32)
[2018-12-07] MEDS: NITROGLYCERIN OINT 1GM/INCH UDPKT TD SCH ×3 (05:12→22:23)
[2018-12-07] MEDS: PROPOFOL 10MG/ML 100ML 100 ML IV PRN ×2 (06:05→13:13)
[2018-12-07 08:23] LABS: BG BASE EXCESS -2.1 mmol/L (-2.0-2.0); BG CARBOXYHEMOGLOBIN 1.8 % (0.5-1.5); BG DEOXYHEMOGLOBIN 0.9 % (0.0-5.0); BG FRACTION INSPIRED OXYGEN 40; BG HCO3 ACT 22.3 mmol/L (22.0-26.0); BG METHEMOGLOBIN 0.2 % (0.0-1.5); BG OXYGEN SATURATION 99.1 % (92.0-98.5); BG OXYHEMOGLOBIN 97.1 % (94.0-97.0); BG PCO2 36.7 mmHg (35.0-45.0); BG PH 7.401 (7.350-7.450); BG SAMPLE SITE A-LINE; BG TIDAL VOLUME(mL) 500 mL; BG TOTAL HEMOGLOBIN 11.5 g/dL (12.0-18.0); BG VENT MODE VENT - A/C; BG VENT RATE 10 set
[2018-12-07 08:35] LABS: HEMATOCRIT. 31.5 % (42.0-52.0); HEMOGLOBIN. 10.4 g/dL (14.0-18.0); MEAN CORPUSCULAR HEMOGLOBIN 30.2 pg (28.0-32.0); MEAN CORPUSCULAR VOLUME 91.5 fL (80.0-94.0); MEAN PLATELET VOLUME 7.8 fl (7.4-10.4); PLATELET 461 x1000/uL (130-400); RED BLOOD CELL COUNT 3.44 mill/uL (4.7-6.1); RED CELL DISTRIBUTION WIDTH 19.2 % (11.6-14.6)
[2018-12-07 09:32] LABS: PLATELET ESTIMATE INCREASED
[2018-12-07] MEDS: FAMOTIDINE 20MG TABLET PO SCH (09:45)
[2018-12-07] MEDS: HYDROCODONE/ACETAMINOPHEN 5/325MG TABLET PO PRN (09:46)
[2018-12-07 18:46] LABS: BG BASE EXCESS -3.1 mmol/L (-2.0-2.0); BG DEOXYHEMOGLOBIN 1.2 % (0.0-5.0); BG FRACTION INSPIRED OXYGEN 40; BG HCO3 ACT 21.9 mmol/L (22.0-26.0); BG METHEMOGLOBIN 0.3 % (0.0-1.5); BG OXYGEN SATURATION 98.8 % (92.0-98.5); BG OXYHEMOGLOBIN 96.5 % (94.0-97.0); BG PCO2 38.8 mmHg (35.0-45.0); BG PH 7.369 (7.350-7.450); BG PO2 133.8 mmHg (75.0-100.0); BG PRESSURE SUPPORT 8; BG SAMPLE SITE RIGHT BRACHIAL; BG TOTAL HEMOGLOBIN 11.6 g/dL (12.0-18.0); BG VENT MODE VENT - CPAP
[2018-12-07] MEDS: MIDAZOLAM HCL 50 MG in DEXTROSE 5% WATER 40 ML IV PRN (20:10)
[2018-12-07] MEDS: FENTANYL CITRATE/PF 500 MCG in SODIUM CHLORIDE 0.9% 40 ML IV PRN (20:11)
[2018-12-08] VITALS (91 sets, daily range): BP systolic 81–191; BP diastolic 29–130
[2018-12-08] MEDS: IPRATROPIUM/ALBUTEROL 0.5-3(2.5)MG/3ML NEB HHN SCH ×2 (01:31→20:20)
[2018-12-08] MEDS: MIDAZOLAM HCL 50 MG in DEXTROSE 5% WATER 40 ML IV PRN (05:16)
[2018-12-08] MEDS: NITROGLYCERIN OINT 1GM/INCH UDPKT TD SCH ×3 (06:00→22:05)
[2018-12-08] MEDS: ENALAPRIL 1.25MG/ML VIAL 1ML IV SCH ×4 (06:00→18:00)
[2018-12-08] MEDS: PIPERACILLIN/TAZ 2.25G PREMIX 50 ML IV SCH ×3 (06:34→22:17)
[2018-12-08] MEDS: FENTANYL CITRATE/PF 500 MCG in SODIUM CHLORIDE 0.9% 40 ML IV PRN ×2 (06:34→22:07)
[2018-12-08 07:11] LABS: QFT TB GOLD PLUS Indeterminate (Negative); QFT TB1 AG VALUE 0.17 IU/mL (.)
[2018-12-08] MEDS ORDERED: HEPARIN SODIUM 1,000 UNIT/1ML VIAL IV NR (08:30)
[2018-12-08] MEDS: FAMOTIDINE 20MG TABLET PO SCH (10:24)
[2018-12-08 13:53] LABS: BG BASE EXCESS -0.7 mmol/L (-2.0-2.0); BG CARBOXYHEMOGLOBIN 1.8 % (0.5-1.5); BG CPAP (cmH2O) 0 cm(H2O); BG DEOXYHEMOGLOBIN 2.7 % (0.0-5.0); BG HCO3 ACT 23.4 mmol/L (22.0-26.0); BG METHEMOGLOBIN 0.3 % (0.0-1.5); BG OXYGEN SATURATION 97.2 % (92.0-98.5); BG OXYHEMOGLOBIN 95.2 % (94.0-97.0); BG PCO2 36.8 mmHg (35.0-45.0); BG PH 7.422 (7.350-7.450); BG PO2 100.5 mmHg (75.0-100.0); BG SAMPLE SITE RIGHT BRACHIAL; BG TOTAL HEMOGLOBIN 12.2 g/dL (12.0-18.0); BG VENT MODE VENT - CPAP
[2018-12-08] MEDS ORDERED: VANCOMYCIN 750 MG PREMIX 150 ML IV SCH (15:00)
[2018-12-08 18:06] LABS: BG CARBOXYHEMOGLOBIN 2.2 % (0.5-1.5); BG DEOXYHEMOGLOBIN 3.1 % (0.0-5.0); BG HCO3 ACT 21.7 mmol/L (22.0-26.0); BG METHEMOGLOBIN 0.3 % (0.0-1.5); BG OXYGEN SATURATION 96.8 % (92.0-98.5); BG OXYHEMOGLOBIN 94.4 % (94.0-97.0); BG PCO2 37.6 mmHg (35.0-45.0); BG PO2 95.1 mmHg (75.0-100.0); BG SAMPLE SITE RIGHT BRACHIAL; BG TIDAL VOLUME(mL) 500 mL; BG TOTAL HEMOGLOBIN 12.2 g/dL (12.0-18.0); BG VENT MODE VENT - A/C; BG VENT RATE 14 set
[2018-12-08] MEDS: HYDRALAZINE 20MG/ML VIAL IV PRN (21:02)
[2018-12-09] VITALS (97 sets, daily range): BP systolic 53–153; BP diastolic 26–97
[2018-12-09] MEDS: MIDAZOLAM HCL 50 MG in DEXTROSE 5% WATER 40 ML IV PRN (03:19)
[2018-12-09] MEDS: ENALAPRIL 1.25MG/ML VIAL 1ML IV SCH ×4 (06:00→18:00)
[2018-12-09] MEDS: NITROGLYCERIN OINT 1GM/INCH UDPKT TD SCH ×3 (06:00→21:54)
[2018-12-09] MEDS: PIPERACILLIN/TAZ 2.25G PREMIX 50 ML IV SCH ×3 (06:18→22:29)
[2018-12-09 07:58] LABS: BG BASE EXCESS -4.9 mmol/L (-2.0-2.0); BG CARBOXYHEMOGLOBIN 1.6 % (0.5-1.5); BG DEOXYHEMOGLOBIN 1.3 % (0.0-5.0); BG FRACTION INSPIRED OXYGEN 90; BG HCO3 ACT 19.2 mmol/L (22.0-26.0); BG METHEMOGLOBIN 0.3 % (0.0-1.5); BG OXYGEN SATURATION 98.7 % (92.0-98.5); BG OXYHEMOGLOBIN 96.8 % (94.0-97.0); BG PCO2 32.6 mmHg (35.0-45.0); BG PH 7.388 (7.350-7.450); BG SAMPLE SITE RIGHT BRACHIAL; BG TIDAL VOLUME(mL) 500 mL; BG TOTAL HEMOGLOBIN 12.7 g/dL (12.0-18.0); BG VENT MODE VENT - A/C; BG VENT RATE 14 set
[2018-12-09] MEDS: IPRATROPIUM/ALBUTEROL 0.5-3(2.5)MG/3ML NEB HHN SCH ×3 (08:12→20:35)
[2018-12-09 10:26] LABS: HEMATOCRIT. 32.8 % (42.0-52.0); HEMOGLOBIN. 10.9 g/dL (14.0-18.0); MEAN CORPUSCULAR HEMOGLOBIN 30.4 pg (28.0-32.0); MEAN CORPUSCULAR VOLUME 91.2 fL (80.0-94.0); MEAN PLATELET VOLUME 7.7 fl (7.4-10.4); PLATELET 439 x1000/uL (130-400); RED BLOOD CELL COUNT 3.59 mill/uL (4.7-6.1); RED CELL DISTRIBUTION WIDTH 18.7 % (11.6-14.6)
[2018-12-09] MEDS: FAMOTIDINE 20MG TABLET PO SCH (10:27)
[2018-12-09 10:36] LABS: CHLORIDE 96 mEq/L (98-107)
[2018-12-09] MEDS: FENTANYL CITRATE/PF 500 MCG in SODIUM CHLORIDE 0.9% 40 ML IV PRN (13:16)
[2018-12-09 15:24] LABS: PLATELET ESTIMATE INCREASED
[2018-12-09] MEDS: METOCLOPRAMIDE HCL 10MG/2ML VIAL IV SCH (18:08)
[2018-12-09] MEDS: EPOETIN ALFA 10000UNITS/ML VIAL SUBCUT SCH (21:00)
[2018-12-10] VITALS (61 sets, daily range): BP systolic 88–162; BP diastolic 34–75
[2018-12-10] MEDS: METOCLOPRAMIDE HCL 10MG/2ML VIAL IV SCH ×4 (00:54→18:35)
[2018-12-10] MEDS: FENTANYL CITRATE/PF 500 MCG in SODIUM CHLORIDE 0.9% 40 ML IV PRN ×3 (00:55→20:39)
[2018-12-10] MEDS: IPRATROPIUM/ALBUTEROL 0.5-3(2.5)MG/3ML NEB HHN SCH ×4 (02:25→20:00)
[2018-12-10 05:37] LABS: HEMATOCRIT. 33.7 % (42.0-52.0); HEMOGLOBIN. 11.2 g/dL (14.0-18.0); MEAN CORPUSCULAR HEMOGLOBIN 30.4 pg (28.0-32.0); MEAN CORPUSCULAR VOLUME 91.4 fL (80.0-94.0); MEAN PLATELET VOLUME 7.9 fl (7.4-10.4); PLATELET 484 x1000/uL (130-400); RED BLOOD CELL COUNT 3.69 mill/uL (4.7-6.1); RED CELL DISTRIBUTION WIDTH 18.8 % (11.6-14.6)
[2018-12-10] MEDS: NITROGLYCERIN OINT 1GM/INCH UDPKT TD SCH ×3 (05:55→22:00)
[2018-12-10] MEDS: ENALAPRIL 1.25MG/ML VIAL 1ML IV SCH ×4 (05:55→18:00)
[2018-12-10] MEDS: PIPERACILLIN/TAZ 2.25G PREMIX 50 ML IV SCH ×2 (05:56→14:33)
[2018-12-10 07:56] LABS: BG BASE EXCESS -1.1 mmol/L (-2.0-2.0); BG CARBOXYHEMOGLOBIN 1.4 % (0.5-1.5); BG DEOXYHEMOGLOBIN 0.5 % (0.0-5.0); BG FRACTION INSPIRED OXYGEN 65; BG HCO3 ACT 22.9 mmol/L (22.0-26.0); BG METHEMOGLOBIN 0.3 % (0.0-1.5); BG OXYGEN SATURATION 99.5 % (92.0-98.5); BG OXYHEMOGLOBIN 97.8 % (94.0-97.0); BG PCO2 35.9 mmHg (35.0-45.0); BG PH 7.423 (7.350-7.450); BG PO2 214.3 mmHg (75.0-100.0); BG SAMPLE SITE RIGHT BRACHIAL; BG TIDAL VOLUME(mL) 500 mL; BG TOTAL HEMOGLOBIN 11.8 g/dL (12.0-18.0); BG VENT MODE VENT - A/C; BG VENT RATE 14 set
[2018-12-10 08:22] LABS: PLATELET ESTIMATE INCREASED
[2018-12-10] MEDS: FAMOTIDINE 20MG TABLET PO SCH (09:09)
[2018-12-10] MEDS: MIDAZOLAM HCL 50 MG in DEXTROSE 5% WATER 40 ML IV PRN (12:46)
[2018-12-10] MEDS ORDERED: LEVOFLOXACIN 750MG PREMIX 150 ML IV SCH (18:00)
[2018-12-11] VITALS (83 sets, daily range): BP systolic 32–152; BP diastolic 21–103
[2018-12-11] MEDS: IPRATROPIUM/ALBUTEROL 0.5-3(2.5)MG/3ML NEB HHN SCH ×4 (01:55→21:08)
[2018-12-11] MEDS: MIDAZOLAM HCL 50 MG in DEXTROSE 5% WATER 40 ML IV PRN ×2 (03:17→19:05)
[2018-12-11] MEDS: ENALAPRIL 1.25MG/ML VIAL 1ML IV SCH ×4 (06:00→17:46)
[2018-12-11] MEDS: NITROGLYCERIN OINT 1GM/INCH UDPKT TD SCH ×3 (06:00→22:00)
[2018-12-11] MEDS: METOCLOPRAMIDE HCL 10MG/2ML VIAL IV SCH ×4 (06:08→17:46)
[2018-12-11] MEDS: FENTANYL CITRATE/PF 500 MCG in SODIUM CHLORIDE 0.9% 40 ML IV PRN ×2 (06:27→17:49)
[2018-12-11 07:57] LABS: BG BASE EXCESS -1.9 mmol/L (-2.0-2.0); BG CARBOXYHEMOGLOBIN 1.4 % (0.5-1.5); BG DEOXYHEMOGLOBIN 2.7 % (0.0-5.0); BG METHEMOGLOBIN 0.3 % (0.0-1.5); BG OXYGEN SATURATION 97.3 % (92.0-98.5); BG OXYHEMOGLOBIN 95.6 % (94.0-97.0); BG PCO2 29.9 mmHg (35.0-45.0); BG PH 7.465 (7.350-7.450); BG SAMPLE SITE RIGHT BRACHIAL; BG TIDAL VOLUME(mL) 500 mL; BG TOTAL HEMOGLOBIN 11.2 g/dL (12.0-18.0); BG VENT MODE VENT - A/C; BG VENT RATE 14 set
[2018-12-11] MEDS: NOREPINEPHRINE 8 MG in DEXT 5% WATER 242 ML IV PRN (08:52)
[2018-12-11] MEDS: FAMOTIDINE 20MG TABLET PO SCH (08:52)
[2018-12-11] MEDS ORDERED: HEPARIN SODIUM 1,000 UNIT/1ML VIAL IV SCH (10:00)
[2018-12-11] MEDS ORDERED: VANCOMYCIN 500 MG PREMIX 100 ML IV SCH (21:00)
[2018-12-12] VITALS (81 sets, daily range): BP systolic 52–169; BP diastolic 20–105
[2018-12-12] MEDS: IPRATROPIUM/ALBUTEROL 0.5-3(2.5)MG/3ML NEB HHN SCH ×4 (01:21→20:30)
[2018-12-12] MEDS: METOCLOPRAMIDE HCL 10MG/2ML VIAL IV SCH ×5 (01:30→23:45)
[2018-12-12] MEDS: FENTANYL CITRATE/PF 500 MCG in SODIUM CHLORIDE 0.9% 40 ML IV PRN ×2 (04:02→14:19)
[2018-12-12] MEDS: NITROGLYCERIN OINT 1GM/INCH UDPKT TD SCH ×3 (06:00→21:21)
[2018-12-12] MEDS: ENALAPRIL 1.25MG/ML VIAL 1ML IV SCH ×5 (06:00→23:03)
[2018-12-12] MEDS: FAMOTIDINE 20MG TABLET PO SCH (09:44)
[2018-12-12] MEDS: DOCUSATE SODIUM SUGAR FREE 100MG/10ML UDC NG PRN ×2 (09:45→18:23)
[2018-12-12] MEDS: MIDAZOLAM HCL 50 MG in DEXTROSE 5% WATER 40 ML IV PRN (12:22)
[2018-12-12] MEDS: NOREPINEPHRINE 8 MG in DEXT 5% WATER 242 ML IV PRN (12:23)
[2018-12-12 13:52] LABS: HEMOGLOBIN. 12.8 g/dL (14.0-18.0); MEAN CORPUSCULAR VOLUME 90.9 fL (80.0-94.0); MEAN PLATELET VOLUME 8.2 fl (7.4-10.4); PLATELET 566 x1000/uL (130-400); RED BLOOD CELL COUNT 4.25 mill/uL (4.7-6.1)
[2018-12-12 13:56] LABS: HEMATOCRIT. 38.7 % (42.0-52.0)
[2018-12-12 14:36] LABS: PLATELET ESTIMATE INCREASED
[2018-12-12 16:01] LABS: BG BASE EXCESS -0.9 mmol/L (-2.0-2.0); BG CARBOXYHEMOGLOBIN 2.2 % (0.5-1.5); BG DEOXYHEMOGLOBIN 6.1 % (0.0-5.0); BG FRACTION INSPIRED OXYGEN 40; BG METHEMOGLOBIN 0.3 % (0.0-1.5); BG OXYGEN SATURATION 93.7 % (92.0-98.5); BG OXYHEMOGLOBIN 91.4 % (94.0-97.0); BG PCO2 36.1 mmHg (35.0-45.0); BG PEEP (cmH2O) 0 cmH2O; BG PH 7.423 (7.350-7.450); BG PO2 72.1 mmHg (75.0-100.0); BG PRESSURE SUPPORT 14; BG SAMPLE SITE RIGHT RADIAL; BG TIDAL VOLUME(mL) 500 mL; BG TOTAL HEMOGLOBIN 13.4 g/dL (12.0-18.0); BG VENT MODE VENT - SIMV; BG VENT RATE 12 set
[2018-12-13] VITALS (89 sets, daily range): BP systolic 43–156; BP diastolic 23–94
[2018-12-13] MEDS: IPRATROPIUM/ALBUTEROL 0.5-3(2.5)MG/3ML NEB HHN SCH ×4 (02:06→20:17)
[2018-12-13] MEDS: ENALAPRIL 1.25MG/ML VIAL 1ML IV SCH ×3 (05:11→17:09)
[2018-12-13] MEDS: NITROGLYCERIN OINT 1GM/INCH UDPKT TD SCH ×2 (05:12→13:02)
[2018-12-13] MEDS: FENTANYL CITRATE/PF 500 MCG in SODIUM CHLORIDE 0.9% 40 ML IV PRN ×2 (06:22→21:21)
[2018-12-13] MEDS: METOCLOPRAMIDE HCL 10MG/2ML VIAL IV SCH ×3 (06:22→18:19)
[2018-12-13 08:58] LABS: HEMATOCRIT. 40.7 % (42.0-52.0); HEMOGLOBIN. 13.1 g/dL (14.0-18.0); MEAN CORPUSCULAR HEMOGLOBIN 29.8 pg (28.0-32.0); MEAN CORPUSCULAR VOLUME 92.6 fL (80.0-94.0); RED CELL DISTRIBUTION WIDTH 19.2 % (11.6-14.6)
[2018-12-13] MEDS: FAMOTIDINE 20MG TABLET PO SCH (09:03)
[2018-12-13] MEDS: PHENYLEPHRINE 40 MG in DEXT 5% WATER 246 ML IV PRN (09:30)
[2018-12-13] MEDS: MIDAZOLAM HCL 50 MG in DEXTROSE 5% WATER 40 ML IV PRN (09:31)
[2018-12-13 09:48] LABS: PLATELET ESTIMATE INCREASED
[2018-12-13] MEDS ORDERED: HEPARIN SODIUM 1,000 UNIT/1ML VIAL IV NR (12:45)
[2018-12-14] VITALS (88 sets, daily range): BP systolic 61–148; BP diastolic 26–117
[2018-12-14] MEDS: METOCLOPRAMIDE HCL 10MG/2ML VIAL IV SCH ×4 (00:06→17:42)
[2018-12-14] MEDS: PHENYLEPHRINE 40 MG in DEXT 5% WATER 246 ML IV PRN ×3 (00:08→22:21)
[2018-12-14] MEDS: IPRATROPIUM/ALBUTEROL 0.5-3(2.5)MG/3ML NEB HHN SCH ×4 (02:30→20:33)
[2018-12-14 07:33] LABS: BG BASE EXCESS -2.2 mmol/L (-2.0-2.0); BG CARBOXYHEMOGLOBIN 2.1 % (0.5-1.5); BG DEOXYHEMOGLOBIN 1.6 % (0.0-5.0); BG HCO3 ACT 21.7 mmol/L (22.0-26.0); BG METHEMOGLOBIN 0.3 % (0.0-1.5); BG OXYGEN SATURATION 98.4 % (92.0-98.5); BG PCO2 34.4 mmHg (35.0-45.0); BG PH 7.418 (7.350-7.450); BG PO2 115.4 mmHg (75.0-100.0); BG SAMPLE SITE RIGHT BRACHIAL; BG TIDAL VOLUME(mL) 500 mL; BG TOTAL HEMOGLOBIN 12.6 g/dL (12.0-18.0); BG VENT MODE VENT - A/C; BG VENT RATE 12 set
[2018-12-14] MEDS: FAMOTIDINE 20MG TABLET PO SCH (08:10)
[2018-12-14] MEDS ORDERED: ALTEPLASE 2MG/VIAL ITC SCH (13:30)
[2018-12-14] MEDS: FENTANYL CITRATE/PF 500 MCG in SODIUM CHLORIDE 0.9% 40 ML IV PRN (17:41)
[2018-12-14] MEDS: MIDAZOLAM HCL 50 MG in DEXTROSE 5% WATER 40 ML IV PRN (19:06)
[2018-12-14] MEDS ORDERED: SODIUM CHLORIDE 0.9% 500 ML IV ONE (19:15)
[2018-12-14] MEDS: LEVOFLOXACIN 750MG PREMIX 150 ML IV SCH (22:21)
[2018-12-15] VITALS (93 sets, daily range): BP systolic 53–189; BP diastolic 26–107
[2018-12-15] MEDS: METOCLOPRAMIDE HCL 10MG/2ML VIAL IV SCH ×5 (00:35→23:59)
[2018-12-15] MEDS: IPRATROPIUM/ALBUTEROL 0.5-3(2.5)MG/3ML NEB HHN SCH ×4 (03:30→19:55)
[2018-12-15] MEDS: FAMOTIDINE 20MG TABLET PO SCH (08:53)
[2018-12-15] MEDS: PHENYLEPHRINE 40 MG in DEXT 5% WATER 246 ML IV PRN ×2 (08:57→17:35)
[2018-12-15 13:05] LABS: BASOPHILS % 0.6 % (0.0-2.0); EOSINOPHILS % 1.8 % (0.0-5.0); HEMATOCRIT. 33.6 % (42.0-52.0); HEMOGLOBIN. 11.1 g/dL (14.0-18.0); LYMPHOCYTES % 8.6 % (20.0-50.0); MEAN CORPUSCULAR HEMOGLOBIN 29.9 pg (28.0-32.0); MEAN CORPUSCULAR VOLUME 90.9 fL (80.0-94.0); MEAN PLATELET VOLUME 8.3 fl (7.4-10.4); MONOCYTES % 9.7 % (2.0-8.0); NEUTROPHILS % 79.3 % (40.0-76.0); PLATELET 443 x1000/uL (130-400); RED CELL DISTRIBUTION WIDTH 17.7 % (11.6-14.6)
[2018-12-15 13:14] LABS: CHLORIDE 95 mEq/L (98-107)
[2018-12-15 13:41] LABS: PHOSPHORUS 8.6 mg/dL (2.5-4.9)
[2018-12-15] MEDS ORDERED: HEPARIN SODIUM 1,000 UNIT/1ML VIAL IV NR (15:30)
[2018-12-16] VITALS (48 sets, daily range): BP systolic 81–153; BP diastolic 29–87
[2018-12-16] MEDS: IPRATROPIUM/ALBUTEROL 0.5-3(2.5)MG/3ML NEB HHN SCH ×4 (02:14→19:58)
[2018-12-16] MEDS: METOCLOPRAMIDE HCL 10MG/2ML VIAL IV SCH ×3 (05:57→17:16)
[2018-12-16 07:01] LABS: BASOPHILS % 0.5 % (0.0-2.0); EOSINOPHILS % 3.5 % (0.0-5.0); HEMATOCRIT. 33.5 % (42.0-52.0); LYMPHOCYTES % 7.4 % (20.0-50.0); MEAN CORPUSCULAR HEMOGLOBIN 29.5 pg (28.0-32.0); MEAN CORPUSCULAR VOLUME 89.8 fL (80.0-94.0); MEAN PLATELET VOLUME 8.8 fl (7.4-10.4); MONOCYTES % 9.4 % (2.0-8.0); NEUTROPHILS % 79.2 % (40.0-76.0); PLATELET 421 x1000/uL (130-400); RED BLOOD CELL COUNT 3.73 mill/uL (4.7-6.1); RED CELL DISTRIBUTION WIDTH 17.4 % (11.6-14.6)
[2018-12-16 07:41] LABS: BG BASE EXCESS -0.8 mmol/L (-2.0-2.0); BG CARBOXYHEMOGLOBIN 1.7 % (0.5-1.5); BG DEOXYHEMOGLOBIN 10.7 % (0.0-5.0); BG FRACTION INSPIRED OXYGEN 40; BG HCO3 ACT 22.4 mmol/L (22.0-26.0); BG METHEMOGLOBIN 0.3 % (0.0-1.5); BG OXYGEN SATURATION 89.1 % (92.0-98.5); BG OXYHEMOGLOBIN 87.3 % (94.0-97.0); BG PCO2 32.3 mmHg (35.0-45.0); BG PH 7.458 (7.350-7.450); BG PO2 58.6 mmHg (75.0-100.0); BG PRESSURE SUPPORT 16; BG SAMPLE SITE RIGHT BRACHIAL; BG TIDAL VOLUME(mL) 500 mL; BG TOTAL HEMOGLOBIN 12.3 g/dL (12.0-18.0); BG VENT MODE VENT - SIMV; BG VENT RATE 6 set
[2018-12-16] MEDS: PHENYLEPHRINE 40 MG in DEXT 5% WATER 246 ML IV PRN (07:44)
[2018-12-16] MEDS: DIPHENHYDRAMINE 50MG/ML VIAL IV PRN ×2 (08:22→13:30)
[2018-12-16] MEDS: FAMOTIDINE 20MG TABLET PO SCH (09:02)
[2018-12-16] MEDS ORDERED: VANCOMYCIN 500 MG PREMIX 100 ML IV SCH (11:30)
[2018-12-16] MEDS: LEVOFLOXACIN 750MG PREMIX 150 ML IV SCH (21:39)
[2018-12-17] VITALS (93 sets, daily range): BP systolic 36–176; BP diastolic 21–126
[2018-12-17] MEDS: METOCLOPRAMIDE HCL 10MG/2ML VIAL IV SCH ×5 (00:14→23:37)
[2018-12-17] MEDS: IPRATROPIUM/ALBUTEROL 0.5-3(2.5)MG/3ML NEB HHN SCH ×4 (02:15→19:53)
[2018-12-17] MEDS: PHENYLEPHRINE 40 MG in DEXT 5% WATER 246 ML IV PRN ×3 (03:28→17:26)
[2018-12-17] MEDS ORDERED: CEFEPIME 1,000 MG in DEXTROSE 5% WATER 50 ML IV NR (06:00)
[2018-12-17] MEDS ORDERED: CEFEPIME 2,000 MG in DEXT 5% WATER 100 ML IV SCH (09:00)
[2018-12-17] MEDS: LORAZEPAM 2MG/ML CPJ IV PRN (09:35)
[2018-12-17] MEDS: FAMOTIDINE 20MG TABLET PO SCH (10:04)
[2018-12-17] MEDS: ACETAMINOPHEN 650MG/20.3ML UDC GT PRN ×2 (10:04→17:29)
[2018-12-17] MEDS: QUETIAPINE FUMARATE 25MG TABLET PO SCH ×2 (10:05→20:10)
[2018-12-17 12:18] LABS: BG BASE EXCESS -2.5 mmol/L (-2.0-2.0); BG DEOXYHEMOGLOBIN 1.2 % (0.0-5.0); BG FRACTION INSPIRED OXYGEN 60; BG HCO3 ACT 20.5 mmol/L (22.0-26.0); BG METHEMOGLOBIN 0.3 % (0.0-1.5); BG OXYGEN SATURATION 98.8 % (92.0-98.5); BG OXYHEMOGLOBIN 97.5 % (94.0-97.0); BG PCO2 30.1 mmHg (35.0-45.0); BG PH 7.452 (7.350-7.450); BG PO2 145.8 mmHg (75.0-100.0); BG SAMPLE SITE RIGHT BRACHIAL; BG TIDAL VOLUME(mL) 500 mL; BG TOTAL HEMOGLOBIN 11.2 g/dL (12.0-18.0); BG VENT MODE VENT - A/C; BG VENT RATE 12 set
[2018-12-17] MEDS: HYDROMORPHONE HCL/PF 2MG/ML CPJ IV PRN (21:08)
[2018-12-18] VITALS (89 sets, daily range): BP systolic 86–136; BP diastolic 28–77
[2018-12-18] MEDS: IPRATROPIUM/ALBUTEROL 0.5-3(2.5)MG/3ML NEB HHN SCH ×4 (01:59→22:17)
[2018-12-18] MEDS: PHENYLEPHRINE 40 MG in DEXT 5% WATER 246 ML IV PRN (05:11)
[2018-12-18] MEDS: METOCLOPRAMIDE HCL 10MG/2ML VIAL IV SCH ×3 (05:20→18:33)
[2018-12-18 05:48] LABS: HEMATOCRIT. 31.2 % (42.0-52.0); HEMOGLOBIN. 10.3 g/dL (14.0-18.0); MEAN CORPUSCULAR HEMOGLOBIN 29.8 pg (28.0-32.0); MEAN CORPUSCULAR VOLUME 90.5 fL (80.0-94.0); MEAN PLATELET VOLUME 8.6 fl (7.4-10.4); PLATELET 374 x1000/uL (130-400); RED BLOOD CELL COUNT 3.45 mill/uL (4.7-6.1); RED CELL DISTRIBUTION WIDTH 17.1 % (11.6-14.6)
[2018-12-18] MEDS ORDERED: CEFEPIME 500 MG in DEXTROSE 5% WATER 50 ML IV SCH (06:00)
[2018-12-18 06:19] LABS: CHLORIDE 103 mEq/L (98-107)
[2018-12-18 06:58] LABS: PLATELET ESTIMATE NORMAL
[2018-12-18] MEDS: LORAZEPAM 2MG/ML CPJ IV PRN (08:19)
[2018-12-18] MEDS: HYDROMORPHONE HCL/PF 2MG/ML CPJ IV PRN (09:32)
[2018-12-18] MEDS: QUETIAPINE FUMARATE 25MG TABLET PO SCH ×2 (09:34→21:28)
[2018-12-18] MEDS: FAMOTIDINE 20MG TABLET PO SCH (09:34)
[2018-12-18] MEDS ORDERED: VANCOMYCIN 500 MG PREMIX 100 ML IV SCH (18:00)
[2018-12-19] VITALS (92 sets, daily range): BP systolic 47–172; BP diastolic 23–116
[2018-12-19] MEDS: IPRATROPIUM/ALBUTEROL 0.5-3(2.5)MG/3ML NEB HHN SCH ×4 (00:47→21:10)
[2018-12-19] MEDS: METOCLOPRAMIDE HCL 10MG/2ML VIAL IV SCH ×4 (00:50→18:55)
[2018-12-19] MEDS: FAMOTIDINE 20MG TABLET PO SCH (10:11)
[2018-12-19] MEDS: QUETIAPINE FUMARATE 25MG TABLET PO SCH ×2 (10:11→20:35)
[2018-12-19 13:59] LABS: BG BASE EXCESS -3.8 mmol/L (-2.0-2.0); BG CARBOXYHEMOGLOBIN 0.7 % (0.5-1.5); BG DEOXYHEMOGLOBIN 1.5 % (0.0-5.0); BG FRACTION INSPIRED OXYGEN 40; BG HCO3 ACT 20.6 mmol/L (22.0-26.0); BG METHEMOGLOBIN 0.3 % (0.0-1.5); BG OXYGEN SATURATION 98.5 % (92.0-98.5); BG OXYHEMOGLOBIN 97.5 % (94.0-97.0); BG PH 7.388 (7.350-7.450); BG PO2 138.9 mmHg (75.0-100.0); BG PRESSURE SUPPORT 8; BG SAMPLE SITE RIGHT BRACHIAL; BG TOTAL HEMOGLOBIN 10.5 g/dL (12.0-18.0); BG VENT MODE VENT - CPAP
[2018-12-19] MEDS ORDERED: HEPARIN SODIUM 1,000 UNIT/1ML VIAL IV NR (16:00)
[2018-12-19] MEDS: LORAZEPAM 2MG/ML CPJ IV PRN (20:34)
[2018-12-20] VITALS (55 sets, daily range): BP systolic 63–161; BP diastolic 28–117
[2018-12-20] MEDS: HYDROMORPHONE HCL/PF 2MG/ML CPJ IV PRN ×2 (00:09→21:31)
[2018-12-20] MEDS: METOCLOPRAMIDE HCL 10MG/2ML VIAL IV SCH ×4 (00:10→17:22)
[2018-12-20] MEDS: IPRATROPIUM/ALBUTEROL 0.5-3(2.5)MG/3ML NEB HHN SCH ×4 (01:16→20:49)
[2018-12-20] MEDS: QUETIAPINE FUMARATE 25MG TABLET PO SCH ×2 (09:09→21:27)
[2018-12-20] MEDS: FAMOTIDINE 20MG TABLET PO SCH (09:09)
[2018-12-20] MEDS: ACETYLCYSTEINE 100MG/ML 10% VIAL 4ML INH SCH (15:48)
[2018-12-21] VITALS (25 sets, daily range): BP systolic 90–165; BP diastolic 30–69
[2018-12-21] MEDS: METOCLOPRAMIDE HCL 10MG/2ML VIAL IV SCH ×4 (00:03→18:11)
[2018-12-21] MEDS: ACETYLCYSTEINE 100MG/ML 10% VIAL 4ML INH SCH ×3 (00:55→13:31)
[2018-12-21] MEDS: IPRATROPIUM/ALBUTEROL 0.5-3(2.5)MG/3ML NEB HHN SCH ×4 (00:55→21:06)
[2018-12-21] MEDS: QUETIAPINE FUMARATE 25MG TABLET PO SCH ×2 (08:32→21:04)
[2018-12-21] MEDS: FAMOTIDINE 20MG TABLET PO SCH (08:32)
[2018-12-21] MEDS ORDERED: HEPARIN SODIUM 1,000 UNIT/1ML VIAL IV ONE (15:45)
[2018-12-22] VITALS: BP 136/37
[2018-12-22] MEDS: LORAZEPAM 2MG/ML CPJ IV PRN (00:14)
[2018-12-22] MEDS: METOCLOPRAMIDE HCL 10MG/2ML VIAL IV SCH ×5 (00:14→23:30)
[2018-12-22] MEDS: ACETYLCYSTEINE 100MG/ML 10% VIAL 4ML INH SCH ×2 (01:08→13:25)
[2018-12-22] MEDS: IPRATROPIUM/ALBUTEROL 0.5-3(2.5)MG/3ML NEB HHN SCH ×3 (01:10→21:39)
[2018-12-22 04:00] VITALS: BP 149/42
[2018-12-22] MEDS: IPRATROPIUM/ALBUTEROL 0.5-3(2.5)MG/3ML NEB INH PRN (07:55)
[2018-12-22 08:00] VITALS: BP 117/61
[2018-12-22] MEDS: FAMOTIDINE 20MG TABLET PO SCH (09:42)
[2018-12-22] MEDS: QUETIAPINE FUMARATE 25MG TABLET PO SCH ×2 (09:43→21:56)
[2018-12-22] MEDS: HYDROCODONE/ACETAMINOPHEN 5/325MG TABLET PO PRN (09:44)
[2018-12-22 12:00] VITALS: BP 117/61
[2018-12-22 16:00] VITALS: BP 115/48
[2018-12-22 18:02] LABS: HEMATOCRIT. 30.3 % (42.0-52.0); HEMOGLOBIN. 9.9 g/dL (14.0-18.0); MEAN CORPUSCULAR HEMOGLOBIN 29.3 pg (28.0-32.0); MEAN CORPUSCULAR VOLUME 89.9 fL (80.0-94.0); MEAN PLATELET VOLUME 8.7 fl (7.4-10.4); PLATELET 405 x1000/uL (130-400); RED BLOOD CELL COUNT 3.37 mill/uL (4.7-6.1)
[2018-12-22 18:35] LABS: PLATELET ESTIMATE SLIGHTLY INCREASED
[2018-12-22 20:00] VITALS: BP_SYST 130; BP_SYST 132; BP_DIAS 33; BP_DIAS 97
[2018-12-23] VITALS: BP 130/33
[2018-12-23] MEDS: IPRATROPIUM/ALBUTEROL 0.5-3(2.5)MG/3ML NEB HHN SCH ×5 (02:43→20:56)
[2018-12-23] MEDS: ACETYLCYSTEINE 100MG/ML 10% VIAL 4ML INH SCH ×3 (02:45→16:06)
[2018-12-23 04:00] VITALS: BP 153/83
[2018-12-23] MEDS: METOCLOPRAMIDE HCL 10MG/2ML VIAL IV SCH ×3 (05:15→18:13)
[2018-12-23] MEDS: QUETIAPINE FUMARATE 25MG TABLET PO SCH ×2 (08:54→21:22)
[2018-12-23] MEDS: FAMOTIDINE 20MG TABLET PO SCH (08:54)
[2018-12-23 12:00] VITALS: BP 192/64
[2018-12-23] MEDS: HYDRALAZINE 20MG/ML VIAL IV PRN (12:57)
[2018-12-23 16:00] VITALS: BP 150/62
[2018-12-23] MEDS: HYDROCODONE/ACETAMINOPHEN 5/325MG TABLET PO PRN (16:13)
[2018-12-23 20:00] VITALS: BP 105/34
[2018-12-24] VITALS: BP 142/67
[2018-12-24] MEDS: HYDROCODONE/ACETAMINOPHEN 5/325MG TABLET PO PRN ×4 (00:11→20:40)
[2018-12-24] MEDS: METOCLOPRAMIDE HCL 10MG/2ML VIAL IV SCH ×4 (00:11→17:06)
[2018-12-24] MEDS: ACETYLCYSTEINE 100MG/ML 10% VIAL 4ML INH SCH ×2 (01:14→16:53)
[2018-12-24] MEDS: IPRATROPIUM/ALBUTEROL 0.5-3(2.5)MG/3ML NEB HHN SCH ×4 (01:15→19:55)
[2018-12-24 04:00] VITALS: BP 152/83
[2018-12-24 08:00] VITALS: BP 143/67
[2018-12-24] MEDS: FAMOTIDINE 20MG TABLET PO SCH (08:38)
[2018-12-24] MEDS: QUETIAPINE FUMARATE 25MG TABLET PO SCH ×2 (08:39→22:39)
[2018-12-24 12:00] VITALS: BP 174/60
[2018-12-24 16:00] VITALS: BP 119/42
[2018-12-24 20:00] VITALS: BP 156/61
[2018-12-25] VITALS (7 sets, daily range): BP systolic 122–189; BP diastolic 48–92
[2018-12-25] MEDS: DIPHENHYDRAMINE 50MG/ML VIAL IV PRN ×2 (01:40→22:15)
[2018-12-25] MEDS: IPRATROPIUM/ALBUTEROL 0.5-3(2.5)MG/3ML NEB HHN SCH ×4 (02:14→20:52)
[2018-12-25] MEDS: HYDRALAZINE 20MG/ML VIAL IV PRN (03:47)
[2018-12-25] MEDS: METOCLOPRAMIDE HCL 10MG/2ML VIAL IV SCH ×4 (05:16→17:43)
[2018-12-25] MEDS: HYDROCODONE/ACETAMINOPHEN 5/325MG TABLET PO PRN (09:38)
[2018-12-25] MEDS: QUETIAPINE FUMARATE 25MG TABLET PO SCH ×2 (09:38→21:00)
[2018-12-25] MEDS: FAMOTIDINE 20MG TABLET PO SCH (09:38)
[2018-12-26] VITALS: BP 149/58
[2018-12-26] MEDS: METOCLOPRAMIDE HCL 10MG/2ML VIAL IV SCH ×4 (00:38→17:19)
[2018-12-26] MEDS: IPRATROPIUM/ALBUTEROL 0.5-3(2.5)MG/3ML NEB HHN SCH ×3 (01:07→13:35)
[2018-12-26 04:00] VITALS: BP 167/40
[2018-12-26 08:00] VITALS: BP 125/56
[2018-12-26] MEDS: QUETIAPINE FUMARATE 25MG TABLET PO SCH (08:54)
[2018-12-26] MEDS: FAMOTIDINE 20MG TABLET PO SCH (08:54)
[2018-12-26 12:00] VITALS: BP 117/40
[2018-12-26 16:00] VITALS: BP 118/61
[2018-12-26 16:31] VITALS: BP_SYST 117; BP_SYST 118; BP_DIAS 40; BP_DIAS 61
== END 2018-12-26 17:19 | disposition hospice, home (50) | DRG 853 ==
LOC: ER 10:58 → 8WST 13:33 → EDBEDREQ 13:36 → ENRESERV 17:41 → 8WST 12-03 18:37 → MICUNO 12-06 08:51 → 8WST 12-21 14:43
PROVIDERS: ADMIT Family Medicine; ATTEND Family Medicine
PROC: 5A1D70Z Performance of Urinary Filtration, Intermittent, Less than 6 Hours Per Day (ICD-10-PCS; 2018-12-03)
PROC: 0W993ZZ Drainage of Right Pleural Cavity, Percutaneous Approach (ICD-10-PCS; 2018-12-04)
PROC: 0BNF4ZZ Release Right Lower Lung Lobe, Percutaneous Endoscopic Approach (ICD-10-PCS; principal; 2018-12-05)
PROC: 0BNC4ZZ Release Right Upper Lung Lobe, Percutaneous Endoscopic Approach (ICD-10-PCS; 2018-12-05)
PROC: 0BND4ZZ Release Right Middle Lung Lobe, Percutaneous Endoscopic Approach (ICD-10-PCS; 2018-12-05)
PROC: 02HV33Z Insertion of Infusion Device into Superior Vena Cava, Percutaneous Approach (ICD-10-PCS; 2018-12-05)
PROC: B5181ZA Fluoroscopy of Superior Vena Cava using Low Osmolar Contrast, Guidance (ICD-10-PCS; 2018-12-05)
PROC: B548ZZA Ultrasonography of Superior Vena Cava, Guidance (ICD-10-PCS; 2018-12-05)
PROC: 30233N1 Transfusion of Nonautologous Red Blood Cells into Peripheral Vein, Percutaneous Approach (ICD-10-PCS; 2018-12-05)
PROC: 0BNK4ZZ Release Right Lung, Percutaneous Endoscopic Approach (ICD-10-PCS; 2018-12-05)
PROC: 5A1D70Z Performance of Urinary Filtration, Intermittent, Less than 6 Hours Per Day (ICD-10-PCS; 2018-12-06)
PROC: 5A1955Z Respiratory Ventilation, Greater than 96 Consecutive Hours (ICD-10-PCS; 2018-12-08)
PROC: 0BH17EZ Insertion of Endotracheal Airway into Trachea, Via Natural or Artificial Opening (ICD-10-PCS; 2018-12-08)
PROC: 5A1D70Z Performance of Urinary Filtration, Intermittent, Less than 6 Hours Per Day (ICD-10-PCS; 2018-12-08)
PROC: 5A1D70Z Performance of Urinary Filtration, Intermittent, Less than 6 Hours Per Day (ICD-10-PCS; 2018-12-09)
PROC: 5A1D70Z Performance of Urinary Filtration, Intermittent, Less than 6 Hours Per Day (ICD-10-PCS; 2018-12-11)
PROC: 5A1D70Z Performance of Urinary Filtration, Intermittent, Less than 6 Hours Per Day (ICD-10-PCS; 2018-12-13)
PROC: 5A1D70Z Performance of Urinary Filtration, Intermittent, Less than 6 Hours Per Day (ICD-10-PCS; 2018-12-15)
PROC: 5A1D70Z Performance of Urinary Filtration, Intermittent, Less than 6 Hours Per Day (ICD-10-PCS; 2018-12-16)
PROC: 5A1D70Z Performance of Urinary Filtration, Intermittent, Less than 6 Hours Per Day (ICD-10-PCS; 2018-12-19)
PROC: 5A1D70Z Performance of Urinary Filtration, Intermittent, Less than 6 Hours Per Day (ICD-10-PCS; 2018-12-21)
PROC: 5A1D70Z Performance of Urinary Filtration, Intermittent, Less than 6 Hours Per Day (ICD-10-PCS; 2018-12-23)
PROC: 5A1D70Z Performance of Urinary Filtration, Intermittent, Less than 6 Hours Per Day (ICD-10-PCS; 2018-12-24)
DX: A41.9 Sepsis, unspecified organism (principal); J69.0 Pneumonitis due to inhalation of food and vomit; N18.6 End stage renal disease; E43 Unspecified severe protein-calorie malnutrition; I50.43 Acute on chronic combined systolic (congestive) and diastolic (congestive) heart failure; J85.1 Abscess of lung with pneumonia; R65.21 Severe sepsis with septic shock; J96.01 Acute respiratory failure with hypoxia; E87.0 Hyperosmolality and hypernatremia; J90 Pleural effusion, not elsewhere classified; E87.1 Hypo-osmolality and hyponatremia; I13.2 Hypertensive heart and chronic kidney disease with heart failure and with stage 5 chronic kidney disease, or end stage renal disease; N25.81 Secondary hyperparathyroidism of renal origin; Z68.1 Body mass index [BMI] 19.9 or less, adult; Z51.5 Encounter for palliative care; Z66 Do not resuscitate; K31.84 Gastroparesis; E11.22 Type 2 diabetes mellitus with diabetic chronic kidney disease; E87.5 Hyperkalemia; E11.43 Type 2 diabetes mellitus with diabetic autonomic (poly)neuropathy; E78.5 Hyperlipidemia, unspecified; D63.8 Anemia in other chronic diseases classified elsewhere; E11.65 Type 2 diabetes mellitus with hyperglycemia; S80.812A Abrasion, left lower leg, initial encounter; S80.811A Abrasion, right lower leg, initial encounter; E78.1 Pure hyperglyceridemia; G89.4 Chronic pain syndrome; I27.20 Pulmonary hypertension, unspecified; L30.9 Dermatitis, unspecified; R13.10 Dysphagia, unspecified; S90.821A Blister (nonthermal), right foot, initial encounter; X58.XXXA Exposure to other specified factors, initial encounter; Y93.89 Activity, other specified; Y92.89 Other specified places as the place of occurrence of the external cause; Y99.8 Other external cause status; Z99.2 Dependence on renal dialysis; Z78.1 Physical restraint status; Z87.891 Personal history of nicotine dependence; Z79.899 Other long term (current) drug therapy
CPT/HCPCS: 31500; 32555; 36415; 36569; 36600; 71045; 71250; 71260; 74018; 74176; 76700; 76937; 77001; 80048; 80202; 82375; 82550; 82553; 82805; 82962; 83605; 83615; 83880; 84100; 84145; 84478; 84484; 86480; 86606; 86850; 86900; 86920; 87070; 87075; 87077; 87102; 87116; 87186; 87389; 88108; 88305; 88312; 92610; 93005; 94002; 94003; 94640; 94667; 96374; 96375; 97162; 97164; 97530; 99285; C1725; C1893; J0171; J0330; J0360; J0690; J0692; J0885; J1170; J1200; J1644; J1956; J2060; J2250; J2270; J2370; J2405; J2543; J2704; J2710; J2765; J2997; J3010; J3370; J3490; J7040; J7050; J7060; J7131; J7608; J7620; P9016